=== PATIENT | female | born 1990 | race Two or more races ===

== ENCOUNTER 2018-10-21 17:05 | Day surgery (SDC) | payer OTHER ==
[2018-10-21] MEDS ORDERED: Sodium Chloride 0.9% 10 ML Syringe FLUSH PRN (17:21)
[2018-10-21] MEDS ORDERED: ceFAZolin 2 GM in Premix Bag 1 BAG IV ONE (17:21)
--- NOTE | 2018-10-21 17:24 | PCM.HP ---
H&P History of Present Illness - General Date of Service: 10/21/18 Admit Problem/Dx: Admission Diagnosis/Problem Admission Diagnosis/Problem Incomplete Source of Information: Patient History Limitations: Reports: No Limitations - History of Present Illness Initial Comments - Free Text/Narative: Patient is a 27 y/o who presents to ER for D&C for incomplete miscarriage. Seen about 1 week ago for of uncertain dates. US done at that time showed an empty gestational sac concerning for blighted ovum. Given was desired patient did desire to repeat US. Unfortunately today started to have very heavy bleeding and passage of large clots. Repeat US showed gestational sac within the cervix. On exam patient bleeding heavily in clinic and sent to ER for surgery. lower abdomen Pain Score (Numeric/FACES): 4 - Related Data Allergies/Adverse Reactions: Allergies Allergy/AdvReac Type Severity Reaction Status Date / Time ibuprofen Allergy Other Verified 10/21/18 17:24 sulfamethoxazole Allergy Other Verified 10/21/18 17:24 [From Bactrim] trimethoprim [From Bactrim] Allergy Other Verified 10/21/18 17:24 Home Medications: Home Meds . 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 (Approximate): - Past Surgical History HEENT Surgical History: Reports: Tonsillectomy GI Surgical History: Reports: Cholecystectomy Female Surgical History: Reports: Section Social & Family History - Tobacco Use Smoking Status *Q: Never Smoker - Alcohol Use Alcohol Use History: No - Recreational Drug Use Recreational Drug Use: No Drug Use in Last 12 Months: No H&P Review of Systems - Review of Systems: Review Of Systems: See Below General: Reports: No Symptoms Pulmonary: Reports: No Symptoms Cardiovascular: Reports: No Symptoms Gastrointestinal: Reports: Abdominal Pain Genitourinary: Reports: Other (heavy bleeding) Musculoskeletal: Reports: No Symptoms Psychiatric: Reports: No Symptoms Neurological: Reports: No Symptoms Exam - Exam Exam: See Below - Vital Signs Vital Signs: Last Vital Signs Temp 36.7 C 10/21/18 17:15 Pulse 98 10/21/18 17:15 Resp 18 10/21/18 17:15 BP 125/78 10/21/18 17:15 Pulse Ox 98 10/21/18 17:15 Weight: 68.039 kg - Exam General: Alert, Oriented, Cooperative Lungs: Clear to Auscultation, Normal Respiratory Effort Cardiovascular: Regular Rate, Regular Rhythm GI/Abdominal Exam: Soft, Non-Tender (Female) Exam: Other (Large amount of blood pooling in the vagina and passage of large clots ) Extremities: Normal Inspection - Problem List (1) Incomplete miscarriage SNOMED Code(s): 261389390 ICD Code: O03.4 - INCOMPLETE SPONTANEOUS WITHOUT COMPLICATION Status: Acute Problem List Initiated/Reviewed/Updated: Yes Orders Last 24hrs: Active Orders 24 hr Category Date Time Status Patient Status [ADT] Routine ADT 10/21/18 17:21 Ordered Peripheral IV Care [RC] . DIRECTED Care 10/21/18 17:22 Ordered Verify Patient Consent Obtain [RC] PER UNIT ROUTINE Care 10/21/18 17:22 Ordered Nothing Per Oral Diet [DIET] Diet 10/21/18 Dinner Ordered ABO/RH TYPE [BBK] Stat Lab 10/21/18 17:20 Ordered CBC W/O DIFF,HEMOGRAM [HEME] Stat Lab 10/21/18 17:20 Ordered Sodium Chloride 0.9% [Saline Flush] Med 10/21/18 17:21 Ordered 10 ml FLUSH ASDIRECTED PRN ceFAZolin [Ancef] 2 gm Med 10/21/18 17:21 Ordered Premix Bag 1 bag IV ONETIME Peripheral IV Insertion Adult [OM.PC] Urgent Oth 10/21/18 17:21 Ordered Schedule Procedure [COMM] Urgent Oth 10/21/18 17:23 Ordered Sequential Compression Device [OM.PC] Per Unit Routine Oth 10/21/18 17:23 Ordered Assessment/Plan Comment:: 27 y/o presents for D&C after findings of heavy bleeding in clinic / US findings of incomplete miscarriage * Labs to be drawn * Consent reviewed and signed. Discussed risks/benefits of surgery. Agrees to a blood transfusion if needed * Will discharge home after surgery
--- NOTE | 2018-10-21 17:40 | PCM.PREANE ---
Preanesthetic Assessment - Procedure Proposed Procedure: d and c - Anesthesia/Transfusion/Family Hx Anesthesia History: Prior Anesthesia Without Reaction Family History of Anesthesia Reaction: No Transfusion History: No Prior Transfusion(s) - Review of Systems General: Chills (today) Pulmonary: No Symptoms Cardiovascular: No Symptoms Gastrointestinal: Abdominal Pain (today ) Neurological: No Symptoms Other: Reports: None - Physical Assessment NPO Status Date: 10/21/18 NPO Status Time: 15:00 (half banana- waffles at noon) O2 Sat by Pulse Oximetry: 98 Respiratory Rate: 18 Vital Signs: Last Vital Signs Temp 98.1 F 10/21/18 17:15 Pulse 98 10/21/18 17:15 Resp 18 10/21/18 17:15 BP 125/78 10/21/18 17:15 Pulse Ox 98 10/21/18 17:15 Height: 5 ft 2 in Weight: 68.039 kg ASA Class: 1E Mental Status: Alert & Oriented x3 Airway Class: Mallampati = 1 Dentition: Reports: Normal Dentition Thyro-Mental Finger Breadths: 3 Mouth Opening Finger Breadths: 3 ROM/Head Extension: Full Lungs: Clear to Auscultation, Normal Respiratory Effort Cardiovascular: Regular Rate, Regular Rhythm - Allergies Allergies/Adverse Reactions: Allergies Allergy/AdvReac Type Severity Reaction Status Date / Time ibuprofen Allergy Other Verified 10/21/18 17:24 sulfamethoxazole Allergy Other Verified 10/21/18 17:24 [From Bactrim] trimethoprim [From Bactrim] Allergy Other Verified 10/21/18 17:24 - Blood Blood Available: No - Acknowledgements Anesthesia Type Planned: General Anesthesia Pt an Appropriate Candidate for the Planned Anesthesia: Yes Alternatives and Risks of Anesthesia Discussed w Pt/Guardian: Yes Pt/Guardian Understands and Agrees with Anesthesia Plan: Yes PreAnesthesia Questionnaire - Past Health History Medical/Surgical History: Denies Medical/Surgical History HEENT History: Reports: Allergic Rhinitis Cardiovascular History: Reports: None Respiratory History: Reports: None Gastrointestinal History: Reports: GERD (with preg) [employer]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 [No Known Home Meds] 10/21/18 [History] - CURRENT (IN HOUSE) MEDS Current Meds: Current Medications Cefazolin Sodium/Dextrose 2 gm (/ Premix) 50 mls @ 100 mls/hr IV ONETIME ONE Stop: 10/21/18 17:50 Sodium Chloride (Saline Flush) 10 ml FLUSH ASDIRECTED PRN PRN Reason: Keep Vein Open
[2018-10-21] MEDS ORDERED: Lidocaine 1% 4 ML ONE (17:42)
[2018-10-21] MEDS ORDERED: Ondansetron 4 MG/2 ML SDV ONE (17:42)
[2018-10-21] MEDS ORDERED: fentaNYL 250 MCG/5 ML SDV ONE (17:43)
[2018-10-21] MEDS ORDERED: Propofol 200 MG/20 ML SDV ONE (17:43)
[2018-10-21] MEDS ORDERED: Succinylcholine/Normal Saline 100 MG/5 ML Syringe ONE (17:43)
[2018-10-21] MEDS ORDERED: Midazolam 1 MG/ML 2 ML SDV ONE (17:43)
[2018-10-21] MEDS ORDERED: Lactated Ringers 1,000 ML ONE ×2 (17:55→18:10)
[2018-10-21] MEDS ORDERED: Dexamethasone 4 MG/ML 5 ML MDV ONE (18:01)
[2018-10-21] MEDS ORDERED: Ondansetron 4 MG/2 ML SDV IVPUSH PRN (18:08)
[2018-10-21] MEDS ORDERED: HYDROmorphone 0.5 MG/0.5 ML Syringe IVPUSH PRN (18:08)
[2018-10-21] MEDS ORDERED: fentaNYL 100 MCG/2 ML SDV IVPUSH PRN (18:08)
--- NOTE | 2018-10-21 18:23 | PCM.OPNOTE ---
- General Post-Op/Procedure Note Date of Surgery/Procedure: 10/21/18 Operative Procedure(s): Suction D&C Findings: Large amount of clot and moderate amount of tissue noted at time of surgery. Uterus otherwise grossly normal in appearance Pre Op Diagnosis: Incomplete miscarriage Post-Op Diagnosis: Incomplete miscarriage Anesthesia Technique: General ET Tube Primary Surgeon: Leisa Drake Anesthesia Provider: Hola Granados Pathology: Products of conception sent to pathology Fluid Replacement, Intraop: 1,000 Output, Urine Amount: 90 EBL in mLs: 50 Complications: None Condition: Good Free Text/Narrative:: The risks, benefits, indications, potential complications, and alternatives were explained to the patient and informed consent obtained. The patient was brought to the OR where anesthesia was induced without difficulty. She was placed in the dorsal lithotomy position and prepped in the usual sterile fashion. A bi-valve speculum was placed in the vagina and the cervix was visualized. A single tooth tenaculum was placed on the anterior lip of the cervix. 10 cc of 1% lidocaine were injected in a paracervical fashion for local anesthesia. Next the cervix was sequentially dilated to a #9 dilator. A size 9-mm cannula was then inserted into the uterus up to the level of the fundus. Next an electric vacuum aspiration was performed by slowly rotating the cannula and performing a gentle in and out motion. Return of tissues was noted. This procedure was repeated until no further return of tissue noted. A gritty texture was also noted at the end of the procedure. There was minimal bleeding at the end of the procedure. The tenaculum was removed from the cervix and the site appeared hemostatic. The patient tolerated the procedure well.
--- NOTE | 2018-10-21 18:31 | PCM.POSTAN ---
POST ANESTHESIA ASSESSMENT - MENTAL STATUS Mental Status: Somnolent - VITAL SIGNS Pulse Rate: 100 SaO2: 100 Resp Rate: 19 Blood Pressure: 102/59 Temperature: 98.3 F - RESPIRATORY Respiratory Status: Respiratory Rate WNL, Airway Patent, O2 Saturation Stable, Supplemental Oxygen - CARDIOVASCULAR CV Status: Pulse Rate WNL, Blood Pressure Stable - GASTROINTESTINAL GI Status: No Symptoms - PAIN Pain Score: 0 - POST OP HYDRATION Hydration Status: Adequate & Stable
--- NOTE | 2018-10-21 18:45 | PCM48HPAN ---
Post Anesthesia Note - EVALUATION WITHIN 48HRS OF ANESTHETIC Vital Signs in Normal Range: Yes Patient Participated in Evaluation: Yes Respiratory Function Stable: Yes Airway Patent: Yes Cardiovascular Function Stable: Yes Hydration Status Stable: Yes Pain Control Satisfactory: Yes Nausea and Vomiting Control Satisfactory: Yes Mental Status Recovered: Yes (awake and talking. denies abd pain. only sore throat) Pulse Rate: 100 Resp Rate: 19 Temperature: 98.3 F Blood Pressure: 102/59
== END 2018-10-21 19:25 | disposition home or self-care (01) ==
LOC: JD.ED 17:05 → JD.SDS 17:40
PROVIDERS: ATTEND Obstetrics & Gynecology
DX: O03.4 Incomplete spontaneous abortion without complication (principal); Z88.6 Allergy status to analgesic agent; Z88.2 Allergy status to sulfonamides; Z88.1 Allergy status to other antibiotic agents
CPT/HCPCS: 01965; 36415; 85027; 86900; 86901; 99285; J0330; J0690; J1100; J2001; J2250; J2405; J2704; J3010; J7120